=== PATIENT | female | born 1990 | race Caucasian/White ===

== ENCOUNTER 2025-01-20 09:04 | Outpatient (CLI) | payer BC, SELFPAY ==
--- NOTE | ~2025-01-20 | XR_ITS ---
Supine and upright views of the abdomen Clinical history: Renal stone Findings: Bowel gas pattern is nonspecific. No evidence for obstruction or free air. No abnormal mass lesion or calcification is seen. Osseous structures are intact. Impression: No significant abnormality is seen. Reviewed, dictated and finalized at [facility]. Impression: No significant abnormality is seen.
== END 2025-01-20 09:05 | disposition home or self-care (01) ==
LOC: MICIMG 09:07
PROVIDERS: PCP Obstetrics & Gynecology; Visit Provider Obstetrics & Gynecology
DX: N20.0 Calculus of kidney (principal)
CPT/HCPCS: 74018